=== PATIENT | female | born 1935 | race Caucasian/White ===

== ENCOUNTER → 2019-07-06 | Outpatient (CLI) | payer MEDICARE, MEDICAID ==
[2019-07-06 12:43] LABS: ALBUMIN 4.1 g/dL (3.5-5.0); ALKALINE PHOSPHATASE 80 U/L (38-126); ASPARTATE AMINO TRANSFERASE 31 U/L (14-36); BILIRUBIN,DIRECT 0.1 mg/dL (0.0-0.4); BILIRUBIN,TOTAL 0.3 mg/dL (0.2-1.3); TOTAL PROTEIN 7.1 g/dL (6.3-8.2)
== END ==
LOC: OD 11:12
PROVIDERS: ATTEND Family Medicine
DX: F32.9 Major depressive disorder, single episode, unspecified (principal); R41.3 Other amnesia; F10.10 Alcohol abuse, uncomplicated; Z79.899 Other long term (current) drug therapy
CPT/HCPCS: 36415; 80076

== ENCOUNTER 2019-09-12 00:43 | Emergency (ER) | payer MEDICARE, MEDICAID ==
--- NOTE | 2019-09-12 01:20 | ER Document Report ---
ED General - General Stated Complaint: VOMITING Time Seen by Provider: 09/12/19 00:59 Primary Care Provider: BRITNI OLSEN MD [NO LOCAL MD] - Follow up as needed TRAVEL OUTSIDE OF THE [place] IN LAST 30 DAYS: No - HPI Notes: Zayra Quevedo is an 84-year-old female senior care facility resident who became ill after eating pizza at the facility earlier tonight and now presents following a syncopal episode and fall. Patient says about 1 hour after eating the pizza she started having cramping in the epigastric area. She went to the bathroom and had 2 loose stools. When she stood up from the toilet she became nauseated and vomited and at that time fell in the bathroom striking the right side of her head sustaining a small laceration. She says she may have momentarily lost consciousness. She felt weak and EMS was called to transport patient here. They gave her normal saline during transport and Zofran IV. Currently the patient is complaining of pain in the posterior neck area and also some pain in her right shoulder. Patient denies chest pain. She denies fever or chills. Tetanus booster current within the last 5 years. Patient denies allergies. - Related Data Allergies/Adverse Reactions: No Known Allergies Allergy (Verified 09/12/19 01:28) Past Medical History - General Information source: Patient, Emergency Med Personnel - Social History Smoking Status: Unknown if Ever Smoked Family History: Arthritis Review of Systems - Review of Systems Notes: Constitutional: Negative for fever. HENT: Negative for sore throat. Eyes: Negative for visual changes. Cardiovascular: Negative for chest pain. Respiratory: Negative for shortness of breath. Gastrointestinal: As per HPI. Genitourinary: Negative for dysuria. Musculoskeletal: Neck pain and right shoulder pain. Negative for back pain. Skin: Negative for rash. Neurological: Negative for headaches, weakness or numbness. 10 point ROS negative except as marked above and in HPI. Physical Exam - Vital signs Vitals: Temp Pulse Resp BP Pulse Ox 97.4 F 79 17 123/67 98 09/12/19 00:52 09/12/19 00:52 09/12/19 00:52 09/12/19 00:52 09/12/19 00:52 - Notes Notes: GENERAL: Elderly female appearing in no acute distress. SKIN: Good turgor no rashes. HEAD: 2 cm superficial skin tear right taoism area at lateral aspect of eyebrow.. EYES: PERRLA. Conjunctivae and sclerae clear. EARS: CANALS AND TMS CLEAR. NOSE: CLEAR. MOUTH: Moist mucosa. Good dentition. No stridor or edema. No drooling. Throat: Clear. NECK: Mild tenderness midline mid C-spine without step-offs or crepitus. No masses or thyromegaly. No adenopathy. Carotids 2+ without bruits. No JVD. BACK: Symmetrical without tenderness. CHEST: Respirations unlabored. Breath sounds clear and symmetrical. HEART: Regular rhythm. No murmur gallop or rub. ABDOMEN: Soft nontender without masses, organomegaly or rebound. Bowel sounds normally active. No bruits. GENITALIA: Deferred. EXTREMITIES: Mild tenderness over superior aspect of right shoulder with no crepitus and no visible ecchymoses. Good range of motion. 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 No edema. No calf tenderness. Cap refill less than 1.5 seconds. Dorsalis pedis and posterior tibial pulses 3+ and symmetrical. NEUROLOGICAL: GCS 15. Alert and oriented x3. Normal gait. Fluent speech. Cranial nerves II through XII intact. Sensorimotor and cerebellar normal. Normal tone. Psychiatric: Normal affect. Course - Re-evaluation Re-evalutation: 09/12/19 02:33 Imaging reveals no major trauma. Patient has a superficial skin tear of the right facial area which is been cleaned and dressed. Her tetanus status is current. When I went back into the room for follow-up she advised me that she thinks she may have a loose tooth right side upper resulting from fall. Reexam shows that she has what looks like an old dental fracture of the right upper canine. This tooth really does not appear to be loose and there is no bleeding. She is missing multiple teeth. I have given the patient an ice pack for posterior cervical area and some oral Tylenol. I think she stable to return to her nursing facility and she can follow-up with her primary care physician and a dentist this week. - Vital Signs Vital signs: Temp Pulse Resp BP Pulse Ox 97.4 F 79 17 123/67 98 09/12/19 00:52 09/12/19 00:52 09/12/19 00:52 09/12/19 00:52 09/12/19 00:52 - Laboratory Result Diagrams: 09/12/19 01:15 09/12/19 01:15 Laboratory results interpreted by me: 09/12/19 09/12/19 01:15 01:15 WBC 12.1 H RDW 14.1 H Lymph % (Auto) 5.6 L Absolute Neuts (auto) 10.7 H Seg Neutrophils % 88.6 H Potassium 5.1 H Chloride 110 H BUN 26 H Glucose 122 H - Diagnostic Test Radiology reviewed: Reports reviewed Radiology results interpreted by me: 09/12/19 02:32 Radiology reports reviewed by me: Head CT shows microvascular changes with no acute traumatic changes reported. Cervical spine CT shows advanced arthritic changes with no fracture or subluxation. Plain films of the right shoulder show no fracture or dislocation - EKG Interpretation by Me EKG shows normal: Sinus rhythm Rate: Normal Rhythm: NSR Additional EKG results interpreted by me: 09/12/19 02:[address]/T wave changes present Discharge - Discharge Clinical Impression: Skin tear face, Syncope and collapse Contusion of shoulder Qualifiers: Encounter type: initial encounter Laterality: unspecified laterality Qualified Code(s): S40.019A - Contusion of unspecified shoulder, initial encounter Contusion of neck Qualifiers: Encounter type: initial encounter Qualified Code(s): S10.93XA - Contusion of unspecified part of neck, initial encounter Condition: Stable Disposition: SNF-Other Additional Instructions: Skin Tear Your wound is a skin tear. These wounds are difficult and sometimes impossible to suture because the skin is so fragile that it may not hold the sutures. The skin condition can be due to aging and sometimes medications. The best care for such skin tears is sometimes to not try to suture them. Rather, it is best to position the skin as closely as possible to its original location and apply a bandage that can remain in place for several days at a time and sometimes these bandages are left in place until the wound has healed. Most skin tears will heal in about two weeks. Because they are so difficult to care for, skin tears should be expected to leave some scarring. Ice packs and Tylenol as needed. Follow-up with your primary care provider and a dentist this week. Referrals: BRITNI OLSEN MD [NO LOCAL MD] - Follow up as needed
[2019-09-12 01:34] LABS: ABSOLUTE EOSINOPHILS # (AUTO) 0.1 10^3/uL (0.0-0.6); ABSOLUTE LYMPHOCYTES (AUTO) 0.7 10^3/uL (0.5-4.7); ABSOLUTE MONOCYTES (AUTO) 0.6 10^3/uL (0.1-1.4); ABSOLUTE NEUT (AUTO) 10.7 10^3/uL (1.7-8.2); BASOPHILS % (AUTO) 0.1 % (0-2); EOSINOPHILS % (AUTO) 0.7 % (0-6); HEMATOCRIT 40.9 % (36.0-47.0); HEMOGLOBIN 13.3 g/dL (12.0-15.5); LYMPHOCYTES % (AUTO) 5.6 % (13-45); MEAN CORPUSCULAR HEMOGLOBIN 31.1 pg (27.0-33.4); MEAN CORPUSCULAR HGB CONC 32.6 g/dL (32.0-36.0); MEAN CORPUSCULAR VOLUME 95 fl (80-97); PLATELET COUNT 190 10^3/uL (150-450); RED BLOOD COUNT 4.29 10^6/uL (3.72-5.28); RED CELL DISTRIBUTION WIDTH 14.1 % (11.5-14.0); SEGMENTED NEUTROPHILS % (AUTO) 88.6 % (42-78); TOTAL CELLS COUNTED % (AUTO) 100 %; WHITE BLOOD COUNT 12.1 10^3/uL (4.0-10.5)
[2019-09-12 01:56] LABS: ALKALINE PHOSPHATASE 88 U/L (38-126); ANION GAP 8 (5-19); ASPARTATE AMINO TRANSFERASE 36 U/L (14-36); BILIRUBIN,DIRECT 0.1 mg/dL (0.0-0.4); BILIRUBIN,TOTAL 0.3 mg/dL (0.2-1.3); BLOOD UREA NITROGEN 26 mg/dL (7-20); CALCIUM 9.3 mg/dL (8.4-10.2); CARBON DIOXIDE 22 mmol/L (22-30); CHLORIDE 110 mmol/L (98-107); GLUCOSE 122 mg/dL (75-110); POTASSIUM 5.1 mmol/L (3.6-5.0); TOTAL PROTEIN 7.1 g/dL (6.3-8.2)
--- NOTE | 2019-09-12 02:09 | RADIOLOGY REPORT (SQ) ---
EXAM DESCRIPTION: CT CERVICAL SPINE WITHOUT IV CONTRAST COMPLETED DATE/TME: 09/12/2019 01:08 CLINICAL HISTORY: 84 years, Female, trauma fall LOC COMPARISON: None. TECHNIQUE: 257 Images stored on PACS. All CT scanners at this facility use dose modulation, iterative reconstruction, and/or weight based dosing when appropriate to reduce radiation dose to as low as reasonably achievable (ALARA). [facility]: Dose Right [facility]: CareDose [facility]: Dose Right [facility]: Teradose 4D [facility]: [place] LIMITATIONS: None. FINDINGS: Evaluation of spinal canal contents limited due to CT technique. However, vertebral body height and alignment is preserved. The prevertebral soft tissues are normal. Diffuse/multilevel degenerative change throughout the cervical spine. Limited evaluation of the lung apices is unremarkable IMPRESSION: No CT evidence for acute C-spine abnormality TECHNICAL DOCUMENTATION: Quality ID # [id number]: Final reports with documentation of one or more dose reduction techniques (e.g., Automated exposure control, adjustment of the mA and/or kV according to patient size, use of iterative reconstruction technique) copyright 2011 [employer]- All Rights Reserved
[2019-09-12 02:11] VITALS: BP 123/67
--- NOTE | 2019-09-12 02:11 | RADIOLOGY REPORT (SQ) ---
CT head without contrast on 09/12/2019 at 1:39 AM CLINICAL INDICATION: Fall, loss of consciousness TECHNIQUE: Multiple axial images are obtained throughout the head without the administration of contrast. This exam was performed according to our departmental dose-optimization program, which includes automated exposure control, adjustment of the mA and/or kV according to patient size and/or use of iterative reconstruction technique. Total DLP is 937.36 mGy*cm. COMPARISON: None FINDINGS: There is generalized cerebral atrophy. There is low density in the periventricular white matter consistent with chronic small vessel ischemic changes. There is no hydrocephalus. There is no hemorrhage. There are no abnormal extra-axial fluid collections. There is no mass, mass effect or midline shift. There is no CT evidence of acute infarct. No bony abnormality is noted. Minimal bilateral sphenoid sinus disease is noted. IMPRESSION: Atrophy and chronic small vessel ischemic changes with no acute intracranial abnormality.
--- NOTE | 2019-09-12 02:16 | RADIOLOGY REPORT (SQ) ---
Right shoulder three view on 09/12/2019 at 1:50 AM CLINICAL INDICATION: Pain after fall COMPARISON: None FINDINGS: The patient is status post a reverse right shoulder arthroplasty. No dislocation or definite hardware complication is noted. There is diffuse osteopenia. The AC joint is well aligned. There are no fractures. IMPRESSION: No acute abnormality.
[2019-09-12] MEDS ORDERED: ACETAMINOPHEN 325 MG TABLET PO ONE (02:32)
[2019-09-12] MEDS ORDERED: METOCLOPRAMIDE HCL 10 MG TABLET PO ONE (03:00)
[2019-09-12 03:42] LABS: APPEARANCE,URINE CLEAR; BILIRUBIN,URINE NEGATIVE (NEGATIVE); COLOR,URINE YELLOW; GLUCOSE, URINE NEGATIVE (NEGATIVE); KETONES,URINE NEGATIVE (NEGATIVE); PROTEIN,URINE NEGATIVE (NEGATIVE); URINE SPECIFIC GRAVITY 1.018; UROBILINOGEN,URINE NEGATIVE mg/dL (<2.0)
--- NOTE | 2019-09-12 08:40 | EKG REPORT ---
SEVERITY:- NORMAL ECG - SINUS RHYTHM : Confirmed by: Osmar Delgadillo MD 12-Sep-2019 08:39:48
== END 2019-09-12 07:38 ==
LOC: ER 00:43
DX: S40.019A Contusion of unspecified shoulder, initial encounter (principal); S10.93XA Contusion of unspecified part of neck, initial encounter; R55 Syncope and collapse; R11.10 Vomiting, unspecified; R10.13 Epigastric pain; M54.2 Cervicalgia; W19.XXXA Unspecified fall, initial encounter
CPT/HCPCS: 93005; 99285; 36415; 85025; 80053; 81001; 84484; 73030; 70450; 72125; 93010; A9270 ×2

== ENCOUNTER → 2020-02-29 | Outpatient (CLI) | payer MEDICARE, MEDICAID | LOC: OD 12:00 | PROVIDERS: ATTEND Family Medicine | DX: R94.6 Abnormal results of thyroid function studies (principal) | CPT/HCPCS: 36415; 84443 ==